=== PATIENT | female | born 1965 | race Caucasian/White ===

== ENCOUNTER 2025-04-08 22:27 | Emergency (ER) | payer OTHER ==
[2025-04-08] MEDS ORDERED: Lidocaine 1% w/Epinephrine 1:100K 20 ML VIAL ONE (23:05)
[2025-04-08] MEDS ORDERED: Amoxicillin/Potassium Clav 875 MG TAB ONE (23:05)
== END 2025-04-08 23:56 | disposition home or self-care (01) ==
LOC: MADERS 22:27
DX: K08.89 Other specified disorders of teeth and supporting structures (principal); F17.210 Nicotine dependence, cigarettes, uncomplicated
CPT/HCPCS: 64400; J0665